=== PATIENT | female | born 1950 | race Caucasian/White ===

== ENCOUNTER 2016-09-27 00:18 | Emergency (ER) | payer BC ==
[~2016-09-27] VITALS: Ht 160 cm; Wt 73.0 kg
[2016-09-27 00:21] VITALS: BP 184/77; PULSE 81; RESP 16; TEMP 97.5; O2SAT 96
[2016-09-27] MEDS ORDERED: traMADol HCL 50 MG TAB PO ONE (01:00)
--- NOTE | 2016-09-27 01:07 | PD ---
HPI Chief Complaint: Musculoskeletal Complaint Time Seen by Provider: 01:04 Travel History International Travel<30 days: No Contact w/Intl Traveler<30days: No Traveled to known affect area: No History of Present Illness HPI Patient comes in for evaluation pain over her fifth metatarsal phalangeal joint that began yesterday. Patient states she has been driving from [place] and first noticed the pain last night. Patient been taking ibuprofen for this with some relief her symptoms. Patient denies any known trauma. Describes a burning sensation that radiates proximally and distally. Pain is worse with walking. Patient denies anything like this in the past. Denies any fevers. PFSH Past Medical History Medical History: Denies Significant Hx Diminished Hearing: No Tetanus Vaccination: < 5 Years Influenza Vaccination: No Past Surgical History Abdominal Surgery: Yes (HERNIA) Social History Alcohol Use: Yes (SOCIALLY) Tobacco Use: No Substance Use: No Allergies-Medications (Allergen,Severity, Reaction): Coded Allergies: Bacitracin (Verified Allergy, Mild, 09/27/16) Latex (Verified Allergy, Mild, HIVES, 09/27/16) Reported Meds & Prescriptions Reported Meds & Active Scripts Active Indomethacin 50 Mg Cap 50 Mg PO Q8HR PRN Take with food, milk, or antacids to decrease stomach adverse effects. Review of Systems Except as stated in HPI: all other systems reviewed are Neg Physical Exam Narrative GENERAL: Well-developed, overly nourished, in no acute distress, and non-ill appearing. SKIN: Warm and dry. Tenderness over right fifth metatarsophalangeal joint is mildly febrile without crepitus, induration, or fluctuation. HEAD: Atraumatic. Normocephalic. EYES: Pupils equal and round. EOMI. No scleral icterus. No injection or drainage. ENT: No nasal bleeding or discharge. Mucous membranes pink and moist. NECK: Trachea midline. Supple. No nuclear rigidity. CARDIOVASCULAR: Dorsal pulses 2+ intact bilaterally. Capillary refill less than 2 seconds.. RESPIRATORY: No accessory muscle use. No respiratory distress. MUSCULOSKELETAL: No obvious deformities. No clubbing. No cyanosis. No edema. Full range of motion. NEUROLOGICAL: Awake and alert. No obvious cranial nerve deficits. Motor grossly within normal limits. Normal speech. PSYCHIATRIC: Appropriate mood and affect; insight and judgment normal. Data Data Last Documented VS Vital Signs Date Time Temp Pulse Resp B/P Pulse Ox O2 Delivery O2 Flow Rate FiO2 09/27/16 01:58 18 09/27/16 00:21 97.5 81 184/77 96 Room Air Orders Toe (Min 2vws) (09/27/16 ) Tramadol (Ultram) (09/27/16 01:00) MDM Medical Decision Making Medical Screen Exam Complete: Yes Emergency Medical Condition: Yes Interpretation(s) X-ray obtained and reviewed. Shows no acute bony abnormality. To be over read by radiologist. Differential Diagnosis Fracture, gout, pseudogout, cellulitis, abscess, other Narrative Course There is no clinical evidence for fracture. There is no clinical evidence to suspect bony injury by exam. Radiographic examination revealed no fracture seen at this time. No obvious ligamental injury or internal derangement is noted at this time. The distal extremity appears neurovascularly intact, without evidence of neurovascular injury nor compartment syndrome. Tendon exam also was intact. The patient was discharged on pain medication and given warnings for vascular compromise. The patient is to follow up with primary care provider or podiatry. The patient agrees with plan. Patient in no obvious distress upon re-evaluation. All pertinent Radiology result(s) discussed with patient/family. Patient was asked if they wanted to speak to my attending, which the patient did not wish to do at this time. Any questions/concerns in reference to patient diagnosis/condition discussed and clarified prior to patient's discharge. Reinforced sheer importance of close follow up with patient's primary physician or primary care clinic and/or podiatry. Instructed patient to return to ED immediately, if symptoms return/ worsen. Pt showed understanding of above instructions. Further instructions and recommendations were detailed in discharge paperwork. Pt ambulated without difficulty out of ED at discharge. Diagnosis Primary Impression: Toe pain, right Referrals: Ha Strange DPM Patient Instructions: Arthritis (ED), General Instructions, Gout (ED), Pseudogout (ED) Additional Instructions: Follow-up with your primary care physician and/or podiatry in 2-3 days for reevaluation. Take all medication as prescribed. Apply ice affected area 20 minutes per hour as needed for pain. Return to the emergency department if symptoms get worse. Med/Other Pt SpecificInfo: Prescription(s) given Scripts Indomethacin 50 Mg Cap50 Mg PO Q8HR PRN (PAIN SCALE 1 TO 10) #15 CAP Ref 0 Take with food, milk, or antacids to decrease stomach adverse effects. Prov:Kvng Mccarty MD 09/27/16 Disposition: 01 DISCHARGE HOME Condition: Stable Vernon Escobar Sep 27, 2016 01:06
[2016-09-27 01:58] VITALS: RESP 18
[2016-09-27] MEDS ORDERED: INDO50CA PO (03:10)
--- NOTE | 2016-09-27 03:36 | RADRPT ---
EXAM DATE/TIME: 09/27/2016 01:30 [facility] COMPARISON: No previous studies available for comparison. INDICATIONS : Right foot, fifth digit pain from unknown injury. MEDICAL HISTORY : None. SURGICAL HISTORY : None. ENCOUNTER: Initial ACUITY: 1 day PAIN SCORE: 7/10 LOCATION: Right foot, fifth digit FINDINGS: 3 views right fifth digit. 2 adjacent calcific densities are seen in the plantar soft tissues adjacen t to the fifth metatarsal head likely representing sesamoids. They are mildly irregular in shape. No evidence of acute fracture. Alignment within normal limits. No evidence of bone erosion. No evidence of joint narrowing. CONCLUSION: No acute findings. Kar Frias MD on September 27, 2016 at 3:30 Board Certified Radiologist. This report was verified electronically.
== END 2016-09-27 03:24 | disposition home or self-care (01) ==
LOC: NEPB 00:18
DX: M79.674 Pain in right toe(s) (principal)
CPT/HCPCS: 73660; 99283